=== PATIENT | male | born 1995 | race Caucasian/White ===

== ENCOUNTER 2017-11-27 07:58 | Emergency (ER) | END 2017-11-27 17:59 | disposition short-term general hospital (02) ==

== ENCOUNTER 2017-12-09 20:13 | Emergency (ER) | END 2017-12-09 21:22 | disposition left against medical advice (07) ==

== ENCOUNTER 2018-01-02 21:43 | Emergency (ER) | END 2018-01-02 23:15 | disposition home or self-care (01) ==